=== PATIENT | female | born 1990 | race Caucasian/White ===

== ENCOUNTER → 2017-06-30 | Outpatient (REF) | payer OTHER ==
[2017-06-30 19:02] LABS: MEAN CORPUSCULAR HEMOGLOBIN 27.7 pg (27.0-33.0); MEAN CORPUSCULAR HGB CONC 32.3 g/dl (32.0-36.5); MEAN CORPUSCULAR VOLUME 85.6 fl (80.0-96.0); PLATELET COUNT, AUTOMATED 422 10^3/uL (150-450); WHITE BLOOD COUNT 7.9 10^3/uL (4.0-10.0)
[2017-06-30 19:53] LABS: HCG, SERUM QUANTITATIVE 6087 MIU/ML
[2017-07-01 11:07] LABS: HBsAg Prenatal NEGATIVE (NEGATIVE)
== END ==
LOC: M LAB REF 17:15
PROVIDERS: ATTEND Obstetrics & Gynecology
DX: O36.80X0 Pregnancy with inconclusive fetal viability, not applicable or unspecified (principal)

== ENCOUNTER → 2017-08-09 | Outpatient (REF) | payer OTHER | LOC: M LAB REF 13:13 | PROVIDERS: ATTEND Obstetrics & Gynecology | DX: Z34.91 Encounter for supervision of normal pregnancy, unspecified, first trimester (principal) ==

== ENCOUNTER → 2017-10-04 | Outpatient (REF) | payer OTHER ==
[2017-10-04 13:53] LABS: THYROID STIMULATING HORMONE 0.074 uIU/ML (0.358-3.740)
== END ==
LOC: M LAB REF 12:32
DX: E03.9 Hypothyroidism, unspecified (principal)

== ENCOUNTER → 2018-01-26 | Outpatient (REF) | payer OTHER | LOC: M LAB REF 12:58 | DX: Z34.83 Encounter for supervision of other normal pregnancy, third trimester (principal) ==

== ENCOUNTER 2018-02-17 10:16 | Inpatient (IN) | payer OTHER ==
[2018-02-17] MEDS: LACTATED RINGER'S 1000 ML IV (10:51)
[2018-02-17 11:09] LABS: HEMATOCRIT 33.4 % (36.0-47.0); HEMOGLOBIN 10.9 g/dl (12.0-15.5); MEAN CORPUSCULAR HEMOGLOBIN 25.5 pg (27.0-33.0); MEAN CORPUSCULAR HGB CONC 32.6 g/dl (32.0-36.5); MEAN CORPUSCULAR VOLUME 78.2 fl (80.0-96.0); PLATELET COUNT, AUTOMATED 263 10^3/uL (150-450); RED BLOOD COUNT 4.27 10^6/uL (4.00-5.40); RED CELL DISTRIBUTION WIDTH 14.7 % (11.5-14.5); WHITE BLOOD COUNT 9.7 10^3/uL (4.0-10.0)
[2018-02-17] MEDS: LR 1,000 ML IV ×4 (12:11→22:00)
[2018-02-17] MEDS: BICITRA 30ML SOLN UDC PO (12:37)
[2018-02-17] MEDS ORDERED: ONDANSETRON 4MG/2ML VIAL (J2405) IV ×2 (12:51→14:00)
[2018-02-17] MEDS ORDERED: NALOXONE INJ 0.4 MG/1 ML VIAL (J2310) IV ×2 (12:51)
[2018-02-17 13:23] LABS: CORD GAS ABE A 0.2; CORD GAS HCO3 A 27.2 MEQ/L; CORD GAS O2 SAT A 38.6 %; CORD GAS PCO2 A 53.3 mmHg; CORD GAS PH A 7.326 UNITS; CORD GAS PO2 A 17.5 mmHg; CORD GAS SBC A 23.1 MEQ/L; CORD GAS TCO2 A 28.9 MEQ/L
[2018-02-17] MEDS ORDERED: OXYTOCIN INJ 10 UNITS/ML VIAL (J2590) As Ordered (13:24)
[2018-02-17] MEDS ORDERED: PHENYLephrine HCL 500 MCG/5 ML (100MCG/ML) SYRINGE (J2370) As Ordered (13:24)
[2018-02-17] MEDS ORDERED: fentaNYL 100 MCG/2 ML INJECTION (J3010) As Ordered (13:24)
[2018-02-17] MEDS ORDERED: ePHEDrine SULFATE 25 MG/5 ML(5MG/ML) SYRINGE As Ordered (13:24)
[2018-02-17] MEDS ORDERED: MORPHINE PRES-FREE INJ 10 MG/10 ML VIAL (J2274) As Ordered (13:24)
[2018-02-17] MEDS ORDERED: KETOROLAC 60 MG/2 ML VIAL (J1885) As Ordered (13:24)
[2018-02-17] MEDS ORDERED: ONDANSETRON 4MG/2ML VIAL (J2405) As Ordered (13:24)
[2018-02-17] MEDS ORDERED: dexameTHASONE 4 MG/ML 1ML VIAL (J1100) As Ordered (13:24)
[2018-02-17 13:25] LABS: CORD GAS ABE V -4.3; CORD GAS HCO3 V 19.6 MEQ/L; CORD GAS O2 SAT V 77.5 %; CORD GAS PCO2 V 33.1 mmHg; CORD GAS PO2 V 32.6 mmHg; CORD GAS SBC V 20.5 MEQ/L; CORD GAS TCO2 V 20.6 MEQ/L
[2018-02-17] MEDS ORDERED: NORCO, ANEXSIA 5/325MG TABLET (HYDROcodone/ACETAMINOPHEN) PO (13:45)
[2018-02-17] MEDS ORDERED: METHYLERGONOVINE MALEATE 0.2 MG TAB PO (13:45)
[2018-02-17] MEDS ORDERED: MEASLES,MUMPS,RUBELLA VACCINE INJ (MMR-II) (90707) SC (13:45)
[2018-02-17] MEDS ORDERED: MOM 30ML SUSPENSION UDC PO (13:45)
[2018-02-17] MEDS ORDERED: RHOGAM 300 MCG (1500 IU) INJ (J2790) IM (13:45)
[2018-02-17] MEDS ORDERED: PERCOCET 5MG/325MG TAB PO (14:00)
[2018-02-17] MEDS ORDERED: METOCLOPRAMIDE INJ 10MG/2ML VIAL (J2765) IV (14:00)
[2018-02-17] MEDS ORDERED: fentaNYL 100 MCG/2 ML INJECTION (J3010) IV (14:00)
[2018-02-17] MEDS ORDERED: MEPERIDINE INJ 25 MG/ML VIAL (J2175) IV (14:00)
[2018-02-17] MEDS ORDERED: NALBUPHINE HCL 10 MG/ML AMP (J2300) IV (14:00)
[2018-02-17] MEDS: DOCUSATE SODIUM 100 MG CAP PO ×2 (16:08→20:24)
[2018-02-17] MEDS: PRENATAL VITAMINS CHEWABLE TABLET PO (16:09)
[2018-02-17] MEDS: METOCLOPRAMIDE INJ 10MG/2ML VIAL (J2765) IV (17:28)
[2018-02-17] MEDS: ONDANSETRON 4MG/2ML VIAL (J2405) IV (20:23)
[2018-02-17] MEDS: IBUPROFEN 800 MG TAB PO (20:24)
[2018-02-18] MEDS: NALBUPHINE HCL 10 MG/ML AMP (J2300) IV (00:40)
[2018-02-18] MEDS: IBUPROFEN 800 MG TAB PO ×3 (04:49→21:45)
[2018-02-18 06:58] LABS: HEMATOCRIT 26.1 % (36.0-47.0); MEAN CORPUSCULAR HEMOGLOBIN 25.5 pg (27.0-33.0); MEAN CORPUSCULAR HGB CONC 32.6 g/dl (32.0-36.5); MEAN CORPUSCULAR VOLUME 78.4 fl (80.0-96.0); PLATELET COUNT, AUTOMATED 256 10^3/uL (150-450); RED BLOOD COUNT 3.33 10^6/uL (4.00-5.40); RED CELL DISTRIBUTION WIDTH 14.8 % (11.5-14.5); WHITE BLOOD COUNT 12.9 10^3/uL (4.0-10.0)
[2018-02-18 07:01] LABS: HEMOGLOBIN 8.5 g/dl (12.0-15.5)
[2018-02-18] MEDS: DOCUSATE SODIUM 100 MG CAP PO ×2 (07:36→21:45)
[2018-02-18] MEDS: PRENATAL VITAMINS CHEWABLE TABLET PO (07:36)
[2018-02-18] MEDS: NORCO, ANEXSIA 5/325MG TABLET (HYDROcodone/ACETAMINOPHEN) PO (18:06)
[2018-02-19] MEDS: IBUPROFEN 800 MG TAB PO ×2 (05:31→12:40)
[2018-02-19] MEDS: DOCUSATE SODIUM 100 MG CAP PO (08:56)
[2018-02-19] MEDS: PRENATAL VITAMINS CHEWABLE TABLET PO (08:56)
== END 2018-02-19 19:00 | disposition home or self-care (01) | DRG 540 ==
LOC: M LDI 10:16 → M OBS 15:16
PROVIDERS: Obstetrics & Gynecology
PROC: 10D00Z1 Extraction of Products of Conception, Low, Open Approach (ICD-10-PCS; principal; 2018-02-17 12:39)
PROC: 0UL70DZ Occlusion of Bilateral Fallopian Tubes with Intraluminal Device, Open Approach (ICD-10-PCS; 2018-02-17 12:39)
DX: O34.211 Maternal care for low transverse scar from previous cesarean delivery (principal); Z30.2 Encounter for sterilization; Z37.0 Single live birth; Z3A.38 38 weeks gestation of pregnancy

== ENCOUNTER → 2018-09-04 | Outpatient (CLI) | payer OTHER ==
[~2018-09-04] MED LIST: IBUP80TA PO; PERC5TAB12 PO; PRENTAB9 PO
--- NOTE | 2018-09-05 14:54 | REP ---
Thyroid uptake and scan: History: Nontoxic multinodular goiter. No comparison imaging. Abnormal thyroid function studies. Technique: 400.0 microcuries of I 123 sodium iodine is injected and the 24 uptake value is acquired along with functional images. Findings: 24 uptake value is slightly low 21.38% (25-35%). Functional images demonstrate asymmetric uptake with a small area of minimal uptake near the region of the upper pole of the left thyroid. There is a larger area of uptake or function in the right thyroid. Findings suggestive of functioning nodules. Electronically Signed by Miller Arzola MD 09/05/2018 05:38 P
== END ==
LOC: M RAD 12:13
PROVIDERS: ATTEND Internal Medicine Endocrinology, Diabetes & Metabolism
DX: E04.2 Nontoxic multinodular goiter (principal); R94.6 Abnormal results of thyroid function studies